=== PATIENT | female | born 1965 | race Caucasian/White ===

== ENCOUNTER 2021-10-08 21:32 | Emergency (ER) | payer OTHER ==
[~2021-10-08] VITALS: Ht 160 cm; Wt 72.6 kg
[2021-10-08] MEDS ORDERED: ONDANSETRON 4 MG ODT PO ONE (22:50)
[2021-10-08 23:57] VITALS: BP 121/77
[2021-10-09] MEDS ORDERED: ONDA-188 SL (01:16)
[2021-10-09] MEDS ORDERED: NALO4SPR NS (01:16)
--- NOTE | 2021-10-09 02:57 | NUR ---
Patient discharged with v/s stable. Written and verbal after care instructions given and explained. Patient verbalized understanding. Ambulatory with steady gait. All questions addressed prior to discharge. Advised to follow up with PMD.
== END 2021-10-09 02:57 | disposition home or self-care (01) ==
LOC: MED 21:32
DX: T40.411A Poisoning by fentanyl or fentanyl analogs, accidental (unintentional), initial encounter (principal); T40.1X1A Poisoning by heroin, accidental (unintentional), initial encounter; Z79.899 Other long term (current) drug therapy; Y92.89 Other specified places as the place of occurrence of the external cause
CPT/HCPCS: 99283; Q0162